=== PATIENT | female | born 1950 | race Caucasian/White ===

== ENCOUNTER 2022-03-21 09:44 | Inpatient (IN) ==
[2022-03-21] MEDS: PARoxetine 20 MG TABLET PO SCH (20:44)
[2022-03-21] MEDS: Ondansetron ODT 4 MG TAB.RAPDIS SL PRN (22:25)
[2022-03-22 04:53] LABS: Hematocrit 25.4 % (35.3-44.9); Hemoglobin 7.9 g/dL (11.5-15.4); Mean Corpuscular HGB Conc 31.1 g/dL (31.6-35.5); Mean Corpuscular Hemoglobin 29.5 pg (28.0-33.3); Mean Corpuscular Volume 94.8 fL (83.0-100.0); Platelet Count 303 K/mcL (140-400); Red Blood Count 2.68 M/mcL (3.82-4.97); Red Cell Distribution Width 15.8 % (11.5-14.5); White Blood Count 4.3 K/mcL (4.3-11.1)
[2022-03-22 05:07] LABS: Potassium 3.8 mEq/L (3.5-5.1)
[2022-03-22] MEDS: *HR* Enoxaparin 40 MG/0.4 ML SYRINGE SQ SCH (06:52)
[2022-03-22] MEDS: Aspirin 81 MG TAB.CHEW PO SCH (08:07)
[2022-03-22] MEDS: PARoxetine 20 MG TABLET PO SCH ×2 (08:07→20:55)
[2022-03-22] MEDS ORDERED: NON-FORMULARY MEDICATION 1 EACH EACH (Turmeric Root Extract [Turmeric] 500 MG Capsule) PO SCH (09:00)
[2022-03-22] MEDS: Ondansetron ODT 4 MG TAB.RAPDIS SL PRN (23:18)
[2022-03-23 04:39] LABS: Hematocrit 25.1 % (35.3-44.9); Hemoglobin 7.7 g/dL (11.5-15.4); Mean Corpuscular HGB Conc 30.7 g/dL (31.6-35.5); Mean Corpuscular Hemoglobin 29.2 pg (28.0-33.3); Mean Corpuscular Volume 95.1 fL (83.0-100.0); Platelet Count 289 K/mcL (140-400); Red Blood Count 2.64 M/mcL (3.82-4.97); Red Cell Distribution Width 15.8 % (11.5-14.5); White Blood Count 4.3 K/mcL (4.3-11.1)
[2022-03-23 04:57] LABS: Albumin 3.7 g/dL (3.5-5.7); Albumin/Globulin Ratio 1.4 (1.1-2.2); Bilirubin,Total 0.3 mg/dL (0.3-1.0); Globulin 2.6 g/dL (2.4-3.5); Magnesium 2.2 mg/dL (1.6-2.6); Potassium 3.9 mEq/L (3.5-5.1); Total Protein 6.3 g/dL (6.4-8.9)
[2022-03-23] MEDS: *HR* Enoxaparin 40 MG/0.4 ML SYRINGE SQ SCH (05:29)
[2022-03-23] MEDS: Aspirin 81 MG TAB.CHEW PO SCH (07:57)
[2022-03-23] MEDS: PARoxetine 20 MG TABLET PO SCH ×2 (07:57→19:39)
[2022-03-23] MEDS: Ondansetron ODT 4 MG TAB.RAPDIS SL PRN (19:42)
[2022-03-24] MEDS: *HR* Enoxaparin 40 MG/0.4 ML SYRINGE SQ SCH (04:13)
[2022-03-24] MEDS: PARoxetine 20 MG TABLET PO SCH ×2 (08:26→19:58)
[2022-03-24] MEDS: Aspirin 81 MG TAB.CHEW PO SCH (08:26)
[2022-03-24] MEDS: Ondansetron ODT 4 MG TAB.RAPDIS SL PRN ×2 (09:41→19:53)
[2022-03-24 22:09] LABS: Bilirubin,Urine Negative (Negative); Blood,Urine Trace-intact (Negative); Clarity,Urine Cloudy (Clear); Color,Urine Yellow (Yellow); Glucose,Urine (UA) Normal (Normal); Ketones,Urine Negative (Negative); Leukocyte Esterase,Urine Large (Negative); Nitrite,Urine Positive (Negative); Protein,Urine 30 mg/dL (Neg-Trace); Urobilinogen,Urine Normal (Normal)
[2022-03-24 22:13] LABS: Bacteria,Urine Many per hpf (None-Few); Squamous Epithelial Cell,Urine Few per hpf (None-Few); WBC,Urine 50-100 per hpf (0-3)
[2022-03-25 05:22] LABS: Basophils % 0.4 %; Eosinophils # 0.1 K/mcL (0.0-0.6); Eosinophils % 1.5 %; Hematocrit 25.3 % (35.3-44.9); Hemoglobin 7.7 g/dL (11.5-15.4); Immature Granulocytes % 0.2 % (0-4); Lymphocytes # 0.8 K/mcL (0.6-4.6); Lymphocytes % 13.7 %; Mean Corpuscular HGB Conc 30.4 g/dL (31.6-35.5); Mean Corpuscular Hemoglobin 28.9 pg (28.0-33.3); Mean Corpuscular Volume 95.1 fL (83.0-100.0); Mean Platelet Volume 9.2 fL (9.4-12.4); Monocytes # 0.5 K/mcL (0.0-1.3); Monocytes % 8.2 %; Neutrophils # 4.2 K/mcL (1.6-8.9); Platelet Count 320 K/mcL (140-400); Red Blood Count 2.66 M/mcL (3.82-4.97); Red Cell Distribution Width 15.6 % (11.5-14.5); White Blood Count 5.5 K/mcL (4.3-11.1)
[2022-03-25 05:40] LABS: Calcium 9.2 mg/dL (8.6-10.3); Potassium 3.6 mEq/L (3.5-5.1)
[2022-03-25] MEDS: *HR* Enoxaparin 40 MG/0.4 ML SYRINGE SQ SCH (06:39)
[2022-03-25] MEDS: PARoxetine 20 MG TABLET PO SCH ×2 (08:31→20:03)
[2022-03-25] MEDS: Aspirin 81 MG TAB.CHEW PO SCH (08:31)
[2022-03-25] MEDS: Ondansetron ODT 4 MG TAB.RAPDIS SL PRN ×2 (08:32→15:15)
[2022-03-26] MEDS: *HR* Enoxaparin 40 MG/0.4 ML SYRINGE SQ SCH (04:50)
[2022-03-26] MEDS: PARoxetine 20 MG TABLET PO SCH ×2 (08:20→20:47)
[2022-03-26] MEDS: Ondansetron ODT 4 MG TAB.RAPDIS SL PRN ×3 (08:20→20:50)
[2022-03-26] MEDS: Aspirin 81 MG TAB.CHEW PO SCH (08:20)
[2022-03-26 12:52] LABS: % Iron Saturation 15 % (15-50); Iron 70 mcg/dL (50-170); Transferrin 326 mg/dL (203-362)
[2022-03-26 13:10] LABS: Ferritin 32 ng/mL (10-120)
[2022-03-26] MEDS: cephALEXin 500 MG CAPSULE PO SCH ×2 (15:02→20:49)
[2022-03-27] MEDS: *HR* Enoxaparin 40 MG/0.4 ML SYRINGE SQ SCH (05:56)
[2022-03-27] MEDS: Aspirin 81 MG TAB.CHEW PO SCH (08:17)
[2022-03-27] MEDS: cephALEXin 500 MG CAPSULE PO SCH ×3 (08:17→19:31)
[2022-03-27] MEDS: PARoxetine 20 MG TABLET PO SCH ×2 (08:17→19:33)
[2022-03-27] MEDS: Ondansetron ODT 4 MG TAB.RAPDIS SL PRN ×2 (08:18→17:16)
[2022-03-27] MEDS: Acetaminophen 325 MG TABLET PO PRN (09:06)
[2022-03-28 04:58] LABS: Basophils % 0.9 %; Eosinophils # 0.1 K/mcL (0.0-0.6); Eosinophils % 2.8 %; Hematocrit 25.5 % (35.3-44.9); Hemoglobin 7.8 g/dL (11.5-15.4); Immature Granulocytes % 0.6 % (0-4); Lymphocytes # 0.8 K/mcL (0.6-4.6); Lymphocytes % 22.9 %; Mean Corpuscular HGB Conc 30.6 g/dL (31.6-35.5); Mean Corpuscular Hemoglobin 28.9 pg (28.0-33.3); Mean Corpuscular Volume 94.4 fL (83.0-100.0); Mean Platelet Volume 8.9 fL (9.4-12.4); Monocytes # 0.4 K/mcL (0.0-1.3); Platelet Count 272 K/mcL (140-400); Red Cell Distribution Width 15.7 % (11.5-14.5); Segmented Neutrophils % 61.8 %; White Blood Count 3.3 K/mcL (4.3-11.1)
[2022-03-28] MEDS: *HR* Enoxaparin 40 MG/0.4 ML SYRINGE SQ SCH (05:03)
[2022-03-28 05:12] LABS: Potassium 3.5 mEq/L (3.5-5.1)
[2022-03-28] MEDS: Aspirin 81 MG TAB.CHEW PO SCH (08:05)
[2022-03-28] MEDS: PARoxetine 20 MG TABLET PO SCH ×2 (08:06→20:45)
[2022-03-28] MEDS: cephALEXin 500 MG CAPSULE PO SCH ×3 (08:06→20:46)
[2022-03-28] MEDS: Ondansetron ODT 4 MG TAB.RAPDIS SL PRN (20:46)
[2022-03-29] MEDS: *HR* Enoxaparin 40 MG/0.4 ML SYRINGE SQ SCH (05:49)
[2022-03-29] MEDS: cephALEXin 500 MG CAPSULE PO SCH ×3 (07:35→21:15)
[2022-03-29] MEDS: PARoxetine 20 MG TABLET PO SCH ×2 (07:35→21:14)
[2022-03-29] MEDS: Aspirin 81 MG TAB.CHEW PO SCH (07:35)
[2022-03-29] MEDS: Ondansetron ODT 4 MG TAB.RAPDIS SL PRN ×2 (07:46→21:16)
[2022-03-30] MEDS: *HR* Enoxaparin 40 MG/0.4 ML SYRINGE SQ SCH (04:31)
[2022-03-30 04:47] LABS: Basophils % 0.3 %; Eosinophils # 0.1 K/mcL (0.0-0.6); Eosinophils % 2.8 %; Hematocrit 26.1 % (35.3-44.9); Hemoglobin 7.8 g/dL (11.5-15.4); Immature Granulocytes % 0.6 % (0-4); Lymphocytes # 0.7 K/mcL (0.6-4.6); Lymphocytes % 23.1 %; Mean Corpuscular HGB Conc 29.9 g/dL (31.6-35.5); Mean Corpuscular Hemoglobin 28.7 pg (28.0-33.3); Mean Platelet Volume 8.8 fL (9.4-12.4); Monocytes # 0.4 K/mcL (0.0-1.3); Monocytes % 11.1 %; Platelet Count 263 K/mcL (140-400); Red Blood Count 2.72 M/mcL (3.82-4.97); Red Cell Distribution Width 16.7 % (11.5-14.5); Segmented Neutrophils % 62.1 %; White Blood Count 3.2 K/mcL (4.3-11.1)
[2022-03-30 05:02] LABS: Albumin 3.5 g/dL (3.5-5.7); Bilirubin,Total 0.3 mg/dL (0.3-1.0); Magnesium 2.1 mg/dL (1.6-2.6); Potassium 3.7 mEq/L (3.5-5.1); Total Protein 5.8 g/dL (6.4-8.9)
[2022-03-30 05:03] LABS: Albumin/Globulin Ratio 1.5 (1.1-2.2); Globulin 2.3 g/dL (2.4-3.5)
[2022-03-30] MEDS: Acetaminophen 325 MG TABLET PO PRN (08:28)
[2022-03-30] MEDS: PARoxetine 20 MG TABLET PO SCH ×2 (08:28→21:01)
[2022-03-30] MEDS: Aspirin 81 MG TAB.CHEW PO SCH (08:28)
[2022-03-30] MEDS: cephALEXin 500 MG CAPSULE PO SCH ×3 (08:29→21:01)
[2022-03-30] MEDS: Ondansetron ODT 4 MG TAB.RAPDIS SL PRN (18:23)
[2022-03-31] MEDS: *HR* Enoxaparin 40 MG/0.4 ML SYRINGE SQ SCH (04:38)
[2022-03-31] MEDS: cephALEXin 500 MG CAPSULE PO SCH ×2 (08:18→15:06)
[2022-03-31] MEDS: Aspirin 81 MG TAB.CHEW PO SCH (08:19)
[2022-03-31] MEDS: PARoxetine 20 MG TABLET PO SCH ×2 (08:19→19:29)
[2022-03-31] MEDS: Acetaminophen 325 MG TABLET PO PRN (19:28)
[2022-03-31] MEDS: Ondansetron ODT 4 MG TAB.RAPDIS SL PRN (19:29)
[2022-04-01] MEDS: *HR* Enoxaparin 40 MG/0.4 ML SYRINGE SQ SCH (06:52)
[2022-04-01] MEDS: Aspirin 81 MG TAB.CHEW PO SCH (08:17)
[2022-04-01] MEDS: PARoxetine 20 MG TABLET PO SCH ×2 (08:17→21:35)
[2022-04-01] MEDS: Acetaminophen 325 MG TABLET PO PRN (21:35)
[2022-04-02 04:07] LABS: Hematocrit 26.7 % (35.3-44.9); Mean Corpuscular Hemoglobin 28.9 pg (28.0-33.3); Mean Corpuscular Volume 96.4 fL (83.0-100.0); Mean Platelet Volume 9.3 fL (9.4-12.4); Platelet Count 248 K/mcL (140-400); Red Blood Count 2.77 M/mcL (3.82-4.97); Red Cell Distribution Width 16.9 % (11.5-14.5); White Blood Count 3.1 K/mcL (4.3-11.1)
[2022-04-02 04:23] LABS: Calcium 9.3 mg/dL (8.6-10.3); Magnesium 2.1 mg/dL (1.6-2.6); Potassium 3.6 mEq/L (3.5-5.1)
[2022-04-02] MEDS: *HR* Enoxaparin 40 MG/0.4 ML SYRINGE SQ SCH (05:53)
[2022-04-02] MEDS: PARoxetine 20 MG TABLET PO SCH ×2 (08:10→19:49)
[2022-04-02] MEDS: Aspirin 81 MG TAB.CHEW PO SCH (08:10)
[2022-04-03] MEDS: PARoxetine 20 MG TABLET PO SCH ×2 (08:04→21:09)
[2022-04-03] MEDS: Aspirin 81 MG TAB.CHEW PO SCH (08:04)
[2022-04-04] MEDS: PARoxetine 20 MG TABLET PO SCH ×2 (08:22→19:56)
[2022-04-04] MEDS: Aspirin 81 MG TAB.CHEW PO SCH (08:22)
[2022-04-05 06:47] VITALS: BP 131/75; PULSE 77; RESP 16; TEMP 98.4; O2SAT 97
[2022-04-05] MEDS: Aspirin 81 MG TAB.CHEW PO SCH (07:56)
[2022-04-05] MEDS: PARoxetine 20 MG TABLET PO SCH (07:56)
[2022-04-05] MEDS ORDERED: Flu Vac QV 22-23 (6MOS UP)/PF 0.5 ML SYRINGE IM ONE (11:02)
== END 2022-04-05 11:21 | disposition home health service (06) | DRG 65 ==
LOC: INPGRE 14:41
PROVIDERS: ADMIT Family Medicine; ATTEND Family Medicine